=== PATIENT | female | born 1995 | race Caucasian/White ===

== ENCOUNTER 2024-06-15 07:02 | Day surgery (SDC) | payer MEDICAID, OTHER ==
[~2024-06-15] VITALS: Ht 160 cm; Wt 72.6 kg
[2024-06-15] MEDS ORDERED: MEPERIDINE 100 MG INJ. 100 MG/ML VIAL ONE (07:15)
[2024-06-15] MEDS ORDERED: MIDAZOLAM HCL 5 MG/5 ML VIAL ONE ×2 (07:15→08:26)
[2024-06-15 07:47] LABS: HCG,QUAL RESULT NEGATIVE (NEGATIVE)
[2024-06-15] MEDS ORDERED: DIPHENHYDRAMINE INJ 50 MG/ML VIAL ONE (08:26)
[2024-06-15 11:29] VITALS: O2SAT 97
[2024-06-15 14:02] VITALS: BP_SYST 106; PULSE 86; RESP 16
== END 2024-06-15 10:05 | disposition home or self-care (01) ==
LOC: SDS 07:02 → SMU 07:04 → SDS 10:05
PROVIDERS: ATTEND Student in an Organized Health Care Education/Training Program
DX: K59.09 Other constipation (principal); K64.4 Residual hemorrhoidal skin tags; K64.8 Other hemorrhoids; Z79.899 Other long term (current) drug therapy
CPT/HCPCS: 45378; 99152; 84703; 99153; G0378; J1200; J2250; J2175